=== PATIENT | female | born 1970 | race African-American/Black ===

== ENCOUNTER 2016-10-03 10:10 | Emergency (ER) | payer BC ==
--- NOTE | 2016-10-03 10:40 | PDOC ---
History of Present Illness - General History Source: Patient Exam Limitations: No Limitations <Alec Benitez - Last Filed: 10/03/16 10:44> - History of Present Illness Initial Comments: 10/03/16 10:44 - General History Source: Patient Exam Limitations: No Limitations - History of Present Illness Initial Comments: 10/03/16 10:41 The patient is a 46 year old female brought via EMS, with a significant past medical history of asthma, who presents to the emergency department with a panic attack. She states that she was driving to work when she suddenly started crying and became short of breath. 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 She notes that she has been feeling depressed and anxious recently. She also notes that she usually eats to compensate for her depression. She reports that she recently moved and has been stressed out lately. She denies any suicidal or homicidal ideation, denes any thoughts of self harm. The patient denies chest pain, headache and dizziness. Allergies: Latex Past surgical history: None reported Social history: Occasional alcohol use. <Alec Benitez - Last Filed: 10/03/16 10:42> 10/03/16 10:45 <Pili Krishnamurthy - Last Filed: 10/04/16 08:48> - General Chief Complaint: Psychiatric Stated Complaint: ANXIETY Time Seen by Provider: 10/03/16 10:30 Past History <Alec Benitez - Last Filed: 10/03/16 10:44> - Psycho/Social/Smoking Cessation Hx Suicidal Ideation: No Smoking History: Never smoked Hx Alcohol Use: Yes (OCCASSIONAL) Drug/Substance Use Hx: No <Pili Krishnamurthy - Last Filed: 10/04/16 08:48> - Past Medical History Allergies/Adverse Reactions: Allergies Allergy/AdvReac Type Severity Reaction Status Date / Time latex Allergy Mild Hives Verified 10/03/16 10:22 Home Medications: Ambulatory Orders Albuterol Sulfate Inhaler - [Ventolin Hfa Inhaler -] 1 puff IH PRN PRN 10/03/16 Review of Systems - Review of Systems Able to Perform ROS?: Yes Comments:: 10/03/16 10:41 12 point review of systems is as per history of present illness and otherwise negative ROS All Other Systems: Reviewed and Negative <EliAlecdanyelle Gifford - Last Filed: 10/03/16 10:44> *Physical Exam - Physical Exam Comments: 10/03/16 10:38 Physical exam GENERAL: The patient is awake, alert, and fully oriented, with occasional tearful affect HEAD: Normal with no signs of trauma. EYES: sclera anicteric, conjunctiva are normal. ENT: Moist mucous membranes. NECK: Normal range of motion, supple LUNGS: Breath sounds equal, clear to auscultation bilaterally. No wheezes, and no crackles. HEART: Regular rate and rhythm, normal S1 and S2 without murmur, rub or gallop. ABDOMEN: Soft, nontender, normoactive bowel sounds. No guarding, no rebound. No masses appreciated. EXTREMITIES: Normal range of motion, no edema. No clubbing or cyanosis. No cords, erythema, or tenderness. NEUROLOGICAL: Cranial nerves II through XII grossly intact. Normal speech, normal gait. PSYCH: Occasional tearful affect SKIN: Warm, Dry, normal turgor, no rashes or lesions noted. <Pili Krishnamurthy - Last Filed: 10/04/16 08:48> ED Treatment Course - LABORATORY CBC & Chemistry Diagram: 10/03/16 10:58 10/03/16 10:58 <Pili Krishnamurthy - Last Filed: 10/04/16 08:48> Medical Decision Making - Medical Decision Making 10/03/16 10:39 46-year-old female who is been under a lot of stress at work, and with a recent move, and has been feeling anxious Today at work, she started feeling very anxious, and suddenly started crying, and feeling like she was having a panic attack She usually does not have panic attacks She denies any recent intercurrent illnesses She denies any suicidal thoughts or ideation, or thoughts of self-harm I did discuss antianxiety medications with her, but she states that she does not want any medications at this time, and will speak to her primary care doctor further about this 10/03/16 12:35 Laboratory Results - last 24 hr 10/03/16 10/03/16 10:58 10:58 WBC 10.2 H RBC 4.65 Hgb 12.2 Hct 38.2 MCV 82.2 MCHC 31.9 L RDW 13.9 Plt Count 267 MPV 9.9 Sodium 140 Potassium 3.9 Chloride 103 Carbon Dioxide 28 Anion Gap 9 BUN 12 Creatinine 0.6 Creat Clearance w eGFR > 60 Random Glucose 100 Calcium 9.0 Total Bilirubin 0.3 AST 15 ALT 24 Alkaline Phosphatase 58 Total Protein 7.0 Albumin 3.4 EKG Normal sinus rhythm 88, normal axis Normal AV and IV conduction time Essentially normal EKG-nonspecific No old EKGs available for comparison TSH pending Addendum-TSH 1.1 Impression-panic attack/anxiety Feeling much better at this time, and will follow-up with her primary care doctor <Pili Krishnamurthy - Last Filed: 10/04/16 08:48> *DC/Admit/Observation/Transfer - Attestations Scribe Attestion: 10/03/16 10:42 Documentation prepared by Alec Benitez, acting as medical center representative for Pili Krishnamurthy MD <Alec Benitez - Last Filed: 10/03/16 10:44> <Pili Krishnamurthy - Last Filed: 10/04/16 08:48> Diagnosis at time of Disposition: Anxiety, Panic attack - Discharge Dispostion Disposition: HOME Condition at time of disposition: Good - Referrals Referrals: Andrew Parra [Non Staff, Medical] - Call tomorrow - Patient Instructions Printed Discharge Instructions: Anxiety Disorders, Anxiety and Panic Attacks ( Alternative Therapy), DI for Anxiety -- Adult Additional Instructions: Followup with your primary care physician in 24-48 hours Return immediately if you worsen in any way I will call you if your TSH comes back abnormal - Post Discharge Activity Work/School Note: Back to Work
[2016-10-03 10:45] VITALS: BMI 30.9
[2016-10-03 10:58] VITALS: TEMP 98.3
[2016-10-03 11:23] LABS: MCH 26.2 pg (25.7-33.7); MCHC 31.9 g/dl (32.0-36.0); MEAN CELL VOLUME 82.2 fl (80-96); MEAN PLT VOLUME 9.9 fl (7.5-11.1); PLATELET COUNT 267 K/MM3 (134-434); RDW 13.9 % (11.6-15.6); WHITE BLOOD COUNT 10.2 K/mm3 (4.0-10.0)
[2016-10-03 11:44] LABS: ALBUMIN 3.4 g/dl (3.4-5.0); ANION GAP 9 (8-16); BILIRUBIN,TOTAL 0.3 mg/dL (0.2-1.0); CO2 28 mmol/L (21-32); CREATININE 0.6 mg/dL (0.55-1.02); GLUCOSE,RANDOM 100 mg/dL (74-106); SGOT/AST 15 U/L (15-37); SGPT/ALT 24 U/L (12-78)
[2016-10-03 11:45] LABS: ALK PHOS 58 U/L (45-117)
[2016-10-03 13:23] VITALS: BP 108/60; PULSE 82
--- NOTE | 2016-10-03 17:28 | EKG ---
Test Reason : Blood Pressure : / mmHG Vent. Rate : 088 BPM Atrial Rate : 088 BPM P-R Int : 140 ms QRS Dur : 076 ms QT Int : 352 ms P-R-T Axes : 058 066 026 degrees QTc Int : 425 ms NORMAL SINUS RHYTHM NONSPECIFIC T WAVE ABNORMALITY ABNORMAL ECG NO PREVIOUS ECGS AVAILABLE Confirmed by JOHNNY KYLE MD ([id number]) on 10/03/2016 5:28:06 PM Referred By: Confirmed By:JOHNNY KYLE MD
== END 2016-10-03 13:23 | disposition home or self-care (01) ==
LOC: JER 10:10 → SUPCPDRO 10:10 → JER 13:23
DX: F41.8 Other specified anxiety disorders (principal); J45.909 Unspecified asthma, uncomplicated
CPT/HCPCS: 36415; 80053; 84443; 85027; 93005; 93010; 99283-25